=== PATIENT | male | born 1960 | race Two or more races ===

== ENCOUNTER 2018-01-12 14:50 | Inpatient (IN) | payer OTHER ==
[~2018-01-12] VITALS: Ht 175.3 cm; Wt 83.9 kg
[2018-01-12] MEDS ORDERED: RESTORIL30 MG PO (15:41)
[2018-01-12] MEDS ORDERED: CYMBALTA60 MG PO (15:41)
[2018-01-12] MEDS ORDERED: CLONAZEPAM0.5 M1 PO (15:42)
[2018-01-20] MEDS ORDERED: GABAPENTIN800 MG PO (09:46)
[2018-01-20] MEDS ORDERED: DOCUSATE SODIU100 MG PO (09:47)
[2018-01-20] MEDS ORDERED: AMOX-CLAV 875-1 EACH PO (09:48)
[2018-01-20] MEDS ORDERED: RESTORIL30 M1 PO (09:49)
[2018-01-20] MEDS ORDERED: PERCOCET 5-3251 EACH PO (09:49)
== END 2018-01-20 14:34 | DRG 455 ==
LOC: O/R 01-19 05:45 → PED 01-19 05:45 → SURG 01-19 13:00 → PED 01-19 15:28
PROVIDERS: Orthopaedic Surgery Orthopaedic Surgery of the Spine
PROC: 0SG0071 Fusion of Lumbar Vertebral Joint with Autologous Tissue Substitute, Posterior Approach, Posterior Column, Open Approach (ICD-10-PCS; 2018-01-19)
PROC: 0ST20ZZ Resection of Lumbar Vertebral Disc, Open Approach (ICD-10-PCS; 2018-01-19)
PROC: 0SG00AJ Fusion of Lumbar Vertebral Joint with Interbody Fusion Device, Posterior Approach, Anterior Column, Open Approach (ICD-10-PCS; 2018-01-19)
PROC: 07DS3ZZ Extraction of Vertebral Bone Marrow, Percutaneous Approach (ICD-10-PCS; 2018-01-19)
PROC: 0SG00A0 Fusion of Lumbar Vertebral Joint with Interbody Fusion Device, Anterior Approach, Anterior Column, Open Approach (ICD-10-PCS; principal; 2018-01-19 13:00)
DX: M47.26 Other spondylosis with radiculopathy, lumbar region (principal); M51.16 Intervertebral disc disorders with radiculopathy, lumbar region

== ENCOUNTER 2022-04-18 12:01 | Inpatient (IN) | payer OTHER ==
[~2022-04-18] VITALS: Ht 175.3 cm; Wt 88.5 kg
[~2022-04-18 12:01] MED LIST: AMOX-CLAV 875-1 EACH PO; CLONAZEPAM0.5 M1 PO; CYMBALTA60 MG PO; DOCUSATE SODIU100 MG PO; GABAPENTIN800 MG PO; PERCOCET 5-3251 EACH PO; RESTORIL30 M1 PO; RESTORIL30 MG PO
[2022-04-18] MEDS ORDERED: HYDREA500 M1 PO (13:55)
[2022-04-24] MEDS ORDERED: NEURONTIN800 MG PO (07:25)
[2022-04-24] MEDS ORDERED: PERCOCET 5-3251 EACH PO (07:25)
[2022-04-24] MEDS ORDERED: MEDROLPACK PO (07:25)
[2022-04-24] MEDS ORDERED: COLACE100 MG PO (07:25)
[2022-04-24] MEDS ORDERED: AMOX-CLAV 875-1 EACH PO (07:25)
== END 2022-04-24 10:45 | disposition home or self-care (01) | DRG 455 ==
LOC: O/R 04-22 07:20 → SURH 04-22 07:20
PROVIDERS: ADMIT Orthopaedic Surgery Orthopaedic Surgery of the Spine; ATTEND Orthopaedic Surgery Orthopaedic Surgery of the Spine
PROC: 0SG3071 Fusion of Lumbosacral Joint with Autologous Tissue Substitute, Posterior Approach, Posterior Column, Open Approach (ICD-10-PCS; 2022-04-22)
PROC: 0ST40ZZ Resection of Lumbosacral Disc, Open Approach (ICD-10-PCS; 2022-04-22)
PROC: 0SP004Z Removal of Internal Fixation Device from Lumbar Vertebral Joint, Open Approach (ICD-10-PCS; 2022-04-22)
PROC: XRGD0R7 Fusion of Lumbosacral Joint using Custom-Made Anatomically Designed Interbody Fusion Device, Open Approach, New Technology Group 7 (ICD-10-PCS; principal; 2022-04-22 19:45)
DX: M48.07 Spinal stenosis, lumbosacral region (principal); M51.17 Intervertebral disc disorders with radiculopathy, lumbosacral region